=== PATIENT | female | born 1970 | race Caucasian/White ===

== ENCOUNTER 2018-06-25 05:28 | Observation (INO) | payer MEDICARE, MEDICAID ==
[2018-06-25] MEDS ORDERED: ALBUTEROL (0.5% CONCENTRATED) 2.5 MG/0.5 ML VIAL.NEB INH ONE ×2 (05:39→05:50)
[2018-06-25] MEDS ORDERED: IPRATROPIUM/ALBUTEROL (0.5MG/3MG) NEB INH ONE (05:39)
[2018-06-25] MEDS ORDERED: ONDANSETRON HCL IV 4 MG/2 ML VIAL IVP ONE (05:50)
[2018-06-25] MEDS ORDERED: METHYLPREDNISOLONE PF 125MG/VIAL IVPB ONE (05:56)
--- NOTE | 2018-06-25 05:56 | Emergency Department Record ---
History of Present Illness - General Chief Complaint: Shortness of breath Stated Complaint: TROUBLE BREATHING Time Seen by Provider: 06/25/18 05:49 Source: Patient Mode of Arrival: Wheelchair Limitations: No limitations - History of Present Illness Initial Comments: 47 yo female presents to ED for evaluation of worsening difficulty in breathing symptoms that began 3 days ago. Patient reports a history of COPD, denies fevers/chills or chest discomfort, but reports non-productive cough symptoms. Patient reports nausea and vomiting symptoms, denies abdominal pain or recent illness. MD Complaint: Shortness of breath Onset/Timin -: Days(s) Consistency: Constant Improves With: Bronchodilators Worsens With: Nothing Known History Of: COPD Associated Symptoms: Denies other symptoms Treatments Prior to Arrival: Bronchodilator - Related Data Home Oxygen Therapy: No Home Medications Medication Instructions Recorded Confirmed Last Taken Aripiprazole [Abilify] 20 mg PO DAILY 06/25/18 06/25/18 Unknown Fentanyl [Duragesic] 100 mcg TD Q72H 06/25/18 06/25/18 Unknown Furosemide [Lasix] 10 mg PO DAILY 06/25/18 06/25/18 Unknown Hydrocodone/Acetaminophen 1 each PO Q6H 06/25/18 06/25/18 Unknown [Hydrocodone-Acetamin 10-325 mg] Lurasidone HCl [Latuda] 120 mg PO DAILY 06/25/18 06/25/18 Unknown Meclizine HCl [Antivert] 25 mg PO Q8H 06/25/18 06/25/18 Unknown Pantoprazole Sodium [Protonix] 40 mg PO DAILY 06/25/18 06/25/18 Unknown Propranolol HCl [Inderal LA] 60 mg PO DAILY 06/25/18 06/25/18 Unknown Rivaroxaban [Xarelto] 20 mg PO DAILY 06/25/18 06/25/18 Unknown Tizanidine HCl 4 mg PO TID 06/25/18 06/25/18 Unknown Trazodone HCl 200 mg PO QHS 06/25/18 06/25/18 Unknown Zolpidem Tartrate [Ambien] 10 mg PO QHS 06/25/18 06/25/18 Unknown Zonisamide [Zonegran] 300 mg PO DAILY 06/25/18 06/25/18 Unknown Allergies Allergy/AdvReac Type Severity Reaction Status Date / Time Penicillins AdvReac NAUSEA Verified 06/25/18 05:32 Review of Systems Constitutional: Denies: Chills, Fever, Malaise, Night sweats Eyes: Denies: Eye discharge, Eye pain ENT: Denies: Congestion, Ear pain, Epistaxis Respiratory: Reports: Cough, Dyspnea, Wheezes Cardiovascular: Denies: Chest pain, Dyspnea on exertion Endocrine: Denies: Fatigue, Heat or cold intolerance Gastrointestinal: Reports: Nausea, Vomiting. Denies: Abdominal pain Genitourinary: Denies: Incontinence, Retention Musculoskeletal: Denies: Arthralgia, Back pain, Gout, Joint swelling Skin: Denies: Bruising, Change in color Neurological: Denies: Abnormal gait, Confusion, Headache, Seizure Psychiatric: Denies: Anxiety Hematological/Lymphatic: Denies: Anemia, Blood Clots Physical Exam - General General Appearance: Alert, Oriented x3, Cooperative, Moderate distress Limitations: No limitations - Head Head exam: Atraumatic, Normocephalic, Normal inspection Head exam detail: negative: Abrasion, Contusion, Lane's sign, General tenderness, Hematoma, Laceration - Eye Eye exam: Normal appearance. negative: Conjunctival injection, Periorbital swelling, Periorbital tenderness, Scleral icterus - ENT Ear exam: negative: Auricular hematoma, Auricular trauma Nasal Exam: negative: Active bleeding, Discharge, Dried blood, Foreign body Mouth exam: negative: Drooling, Laceration, Muffled voice, Tongue elevation - Neck Neck exam: Normal inspection. negative: Meningismus, Tenderness - Respiratory Respiratory exam: Normal lung sounds bilaterally. negative: Rales, Respiratory distress, Rhonchi, Stridor - Cardiovascular Cardiovascular Exam: Regular rate, Normal rhythm, Normal heart sounds - GI/Abdominal GI/Abdominal exam: Soft. negative: Rebound, Rigid, Tenderness - Rectal Rectal exam: Deferred - exam: Deferred - Extremities Extremities exam: Normal inspection. negative: Calf tenderness, Pedal edema, Tenderness - Back Back exam: Denies: CVA tenderness (R), CVA tenderness (L) - Neurological Neurological exam: Alert, Normal gait, Oriented X3 - Psychiatric Psychiatric exam: Normal affect, Normal mood - Skin Skin exam: Normal color. negative: Abrasion Type of lesion: negative: abrasion Course Vital Signs 06/25/18 05:43 Pulse Rate 97 H Respiratory 26 H Rate Pulse Ox 94 L - Reevaluation(s) Reevaluation #1: 06/25/18 05:55 EKG: NSR 88 Normal axis, normal intervals No acute ST-T wave changes are present Reevaluation #2: 06/25/18 06:47 Laboratory studies were reviewed: Hgb 10.3 CO2 19 AG 17 Labs are otherwise grossly unremarkable for an acute process. CXR: Chronic scarring right base No definite acute chest pathology. Patient is back on Bipap, reports that her symptoms are significantly improved. Will admit for further evaluation. Reevaluation #3: 06/25/18 06:53 Case was discussed with Elva Kitchen CALENDER LET OFF OPERATOR, will accept admission at this time. Medical Decision Making - Lab Data Result diagrams: 06/25/18 05:44 06/25/18 05:44 Critical Care Time Critical Care Time: Yes Total Critical Care Time: 60 Critical Care Time: Diagnosis and treatment of COPD with exacerbation, management of Bipap, EKG interpretation, laboratory interpretation, admission for further evaluation. Disposition Disposition: Admit Clinical Impression: COPD with exacerbation Disposition: Home, Self-Care Decision to Admit: Admit from ER Decision to Admit Date: 06/25/18 Decision to Admit Time: 06:57 Condition: (2) Stable Forms: Patient Portal Access Time of Disposition: 06:57 Quality - Quality Measures Quality Measures: N/A - Blood Pressure Screening Does Patient Have Any of the Following: Active Dx of HTN Blood Pressure Classification: Hypertensive Reading Systolic Measurement: 189 Diastolic Measurement: 119 Screening for High Blood Pressure: Patient Exclusion, Hx of HTN [[id number]]
[2018-06-25] MEDS ORDERED: 0.9 % SODIUM CHLORIDE 1000ML 1,000 ML IV SCH (06:00)
[2018-06-25 06:16] LABS: BASO % 0.2 % (0-6); EOS % 1.3 % (0-6); GRAN % 69.2 % (47-80); HEMATOCRIT 35.8 % (35.0-47.0); HEMOGLOBIN 10.3 gm/dl (11.6-16.0); LYMPH % 16.7 % (16-45); MEAN CELL VOLUME 83.8 fl (81-97); MEAN CORPUSCULAR HEMOGLOBIN 24.1 pg (27-33); MEAN CORPUSCULAR HGB CONC 28.8 g/dl (32-36); MEAN PLATELET VOLUME 10.2 fl (7.4-10.4); MONO % 12.6 % (0-9); PLATELET COUNT 251 K/uL (130-400); RED BLOOD COUNT 4.27 M/uL (3.80-5.40); RED CELL DISTRIBUTION WIDTH 17.7 % (11.5-14.5); WHITE BLOOD COUNT W/O DIFF 8.7 K/uL (4.2-12.2)
[2018-06-25 06:25] LABS: BLOOD UREA NITROGEN 11 mg/dL (6-20); CREATININE 0.9 mg/dL (0.5-0.9); EST GLOMERULAR FILTRATION RATE > 60 mL/min
[2018-06-25 06:26] LABS: TOTAL PROTEIN 8.1 g/dL (6.6-8.7)
[2018-06-25 06:28] LABS: GLUCOSE,RANDOM 108 mg/dL (74-109)
[2018-06-25 06:30] LABS: ALB/GLOB RATIO 1.1 (1.1-1.8); ALBUMIN 4.2 g/dL (4.0-5.0); ALT/SGPT 23 U/L (<33); AST/SGOT 33 U/L (10.0-35.0)
[2018-06-25 06:31] LABS: ALKALINE PHOSPHATASE 97 U/L (45-87)
[2018-06-25] MEDS: IPRATROPIUM/ALBUTEROL (0.5MG/3MG) NEB INH SCH ×5 (07:51→21:55)
[2018-06-25] MEDS ORDERED: 0.9 % SODIUM CHLORIDE 1000ML 1,000 ML IV PRN (07:53)
[2018-06-25] MEDS ORDERED: ACETAMINOPHEN 500 MG TABLET PO PRN (07:53)
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
[2018-06-25 09:16] LABS: INFLUENZA A NEGATIVE (NEGATIVE); INFLUENZA B NEGATIVE (NEGATIVE)
[2018-06-25] MEDS ORDERED: TIZANIDINE HCL 4 MG TABLET PO PRN (09:40)
[2018-06-25] MEDS ORDERED: RIVAROXABAN 20 MG TABLET PO SCH (10:00)
[2018-06-25] MEDS ORDERED: ARIPIPRAZOLE 15 MG PO SCH (10:00)
[2018-06-25] MEDS ORDERED: ARIPIPRAZOLE 20 MG PO SCH (10:00)
[2018-06-25] MEDS ORDERED: ZONISAMIDE 300 MG PO SCH ×2 (10:00→22:30)
[2018-06-25] MEDS ORDERED: TIZANIDINE HCL 4 MG TABLET PO SCH (10:00)
[2018-06-25] MEDS ORDERED: IPRATROPIUM/ALBUTEROL (0.5MG/3MG) NEB INH SCH (10:00)
[2018-06-25] MEDS ORDERED: LURASIDONE HCL 120 MG PO SCH (10:00)
[2018-06-25] MEDS: HYDROCODONE/APAP 10/325 TABLET PO SCH ×3 (10:11→19:53)
[2018-06-25] MEDS: PANTOPRAZOLE SODIUM 40 MG TABLET PO SCH (10:11)
[2018-06-25] MEDS: LORAZEPAM 0.5 MG TABLET PO SCH ×3 (10:12→22:28)
[2018-06-25] MEDS: MECLIZINE 25 MG TABLET PO SCH ×3 (10:12→22:33)
[2018-06-25] MEDS: PROPRANOLOL HCL 60 MG PO SCH (10:13)
[2018-06-25] MEDS: FUROSEMIDE 20 MG TABLET PO SCH (10:13)
[2018-06-25] MEDS: METHYLPREDNISOLONE PF 125MG/VIAL IVP SCH (10:18)
[2018-06-25] MEDS: NICOTINE 21 MG/24 HOUR PATCH TD SCH (10:19)
[2018-06-25] MEDS: BUDESONIDE 0.5 MG/2 ML INH SCH (17:09)
[2018-06-25] MEDS ORDERED: LORAZEPAM 2 MG/ML VIAL IV ONE (19:03)
--- NOTE | 2018-06-25 19:10 | Physician Progress Note ---
Subjective - Date Date of Physician Progress Note: 06/25/18 - Subjective Subjective Comment: During Am rounds, pt c/o sudden onset of right foot pain with numbness and tingling while sitting in bed. Stroke assessment negative, pt is A&Ox4, moving all extremities but having difficulty flexing, extending right foot. Pulses +3 DP, PT, foot pwd. pt has chronic back pain with sciatica involvement. Babinski normal with stimulation. Symptoms resolved in 30 minutes after repositioning in bed under her own power. CT ordered lumbar spin showing DDD but no bulging, canal stenosis or nerve impingement noted. -Dr Harris consulted on situation, no further testing indicated at this time Location: Right, Lower extremity Quality: Aching, Burning Associated symptoms: Denies other symptoms Objective - Vital Signs Vital Signs: Vital Signs - Last 24 Hrs Temp Pulse Pulse Pulse Resp BP BP 06/25/18 18:00 97.9 F 101 H 22 118/74 06/25/18 17:10 100 H 20 06/25/18 13:13 89 20 06/25/18 10:41 89 18 06/25/18 10:30 89 22 127/75 06/25/18 08:32 24 06/25/18 07:51 87 20 06/25/18 07:40 98.1 F 91 H 24 98/80 06/25/18 07:27 84 20 145/89 06/25/18 06:26 81 22 148/88 06/25/18 05:43 97 H 26 H 06/25/18 05:28 97.9 F 103 H 20 189/119 Pulse Ox 06/25/18 18:00 97 06/25/18 17:10 96 06/25/18 13:13 98 06/25/18 10:41 98 06/25/18 10:30 94 L 06/25/18 08:32 06/25/18 07:51 99 06/25/18 07:40 95 06/25/18 07:27 95 06/25/18 06:26 95 06/25/18 05:43 94 L 06/25/18 05:28 95 - General General Appearance: Alert, Oriented x3, Cooperative, No acute distress Limitations: No limitations - Head Head exam: Atraumatic, Normocephalic, Normal inspection Head exam detail: negative: Abrasion, Contusion, Lane's sign, General tenderness, Hematoma, Laceration - Eye Eye exam: Normal appearance. negative: Conjunctival injection, Periorbital swelling, Periorbital tenderness, Scleral icterus - ENT Ear exam: negative: Auricular hematoma, Auricular trauma Nasal Exam: negative: Active bleeding, Discharge, Dried blood, Foreign body Mouth exam: negative: Drooling, Laceration, Muffled voice, Tongue elevation - Neck Neck exam: Normal inspection. negative: Meningismus, Tenderness - Respiratory Respiratory exam: Normal lung sounds bilaterally. negative: Rales, Respiratory distress, Rhonchi, Stridor - Cardiovascular Cardiovascular Exam: Regular rate, Normal rhythm, Normal heart sounds Peripheral Pulses: 2+: Radial (R), Radial (L), Dorsalis Pedis (R), Dorsalis Pedis (L) - GI/Abdominal GI/Abdominal exam: Soft, Other (J tube left lower abd). negative: Rebound, Rigid, Tenderness - Rectal Rectal exam: Deferred - exam: Deferred - Extremities Extremities exam: Normal inspection. negative: Calf tenderness, Pedal edema, Tenderness - Back Back exam: Denies: CVA tenderness (R), CVA tenderness (L) - Neurological Neurological exam: Alert, Normal gait, Oriented X3 - Psychiatric Psychiatric exam: Normal affect, Normal mood - Skin Skin exam: Normal color. negative: Abrasion Type of lesion: negative: abrasion Assessment and Plan - Assessment and Plan (1) COPD with exacerbation Current Visit: Yes Status: Acute Base Code: J44.1 - CHRONIC OBSTRUCTIVE PULMONARY DISEASE W (ACUTE) EXACERBATION Comment: 06/25/18 -after short trial on Bipap, pt maintaining sats on NC -steroids and neb tx controlling symptoms -pt encouraged to stop smoking, currently 1ppd -re-eval pt in the AM for D/C on short course PO steroids (2) Full code status Current Visit: Yes Status: Acute Base Code: Z78.9 - OTHER SPECIFIED HEALTH STATUS Comment: 06/25/18 -full code (3) DVT prophylaxis Current Visit: Yes Status: Acute Base Code: [id number] - Comment: 06/25/18 -pt on Xeralto daily for h/o PEs Results - Labs Result Diagrams: 06/25/18 05:44 06/25/18 05:44 Labs Last 24 Hours: Laboratory Results - last 24 hr 06/25/18 06/25/18 06/25/18 05:44 05:44 08:20 WBC 8.7 RBC 4.27 Hgb 10.3 L Hct 35.8 MCV 83.8 MCH 24.1 L MCHC 28.8 L RDW 17.7 H Plt Count 251 MPV 10.2 Gran % 69.2 Lymphocytes % 16.7 Monocytes % 12.6 H Eosinophils % 1.3 Basophils % 0.2 Sodium 141 Potassium 4.2 Chloride 105 Carbon Dioxide 19.0 L Anion Gap 17.0 H BUN 11 Creatinine 0.9 Estimated GFR > 60 Random Glucose 108 Calcium 8.9 Total Bilirubin 0.20 AST 33 ALT 23 Alkaline Phosphatase 97 H Troponin T < 0.010 Total Protein 8.1 Albumin 4.2 Globulin 3.9 Albumin/Globulin Ratio 1.1 Influenza Type A Ag Negative Influenza Type B Ag Negative DVT/PE Assessment - Risk for VTE Risk for VTE: No Risk Level: Moderate Risk Assessment Date: 06/25/18 Risk Assessment Time: 10:00 VTE Orders Placed or Will Be Placed: No VTE Reason for No Prophylaxis: Contraindicated (pt on xeralto) - Active Medicaitons Current Medications: Current Medications Acetaminophen (Tylenol 500mg Tab) 1,000 mg PO Q6H PRN PRN Reason: PAIN - MILD(1-4)/FEVER Hydrocodone Bitart/Acetaminophen ([place] 10mg/325mg) 1 each PO Q6H [facility] Last Admin: 06/25/18 14:55 Dose: 1 each Albuterol Sulfate (Albuterol Sulfate) 2.5 mg INH RESP.Q2H PRN PRN Reason: DIFFICULTY IN BREATHING Albuterol/Ipratropium (Duoneb) 3 ml INH RESP.Q4H.WA [facility] Last Admin: 06/25/18 17:09 Dose: 3 ml Budesonide (Pulmicort) 0.5 mg INH RESP.BID [facility] Last Admin: 06/25/18 17:09 Dose: 0.5 mg Fentanyl (Duragesic) 100 mcg TD Q72H [facility] Furosemide (Lasix) 10 mg PO DAILY [facility] Last Admin: 06/25/18 10:13 Dose: 10 mg Sodium Chloride () 1,000 mls @ 100 mls/hr IV .Q10H PRN PRN Reason: LARGE VOLUME IV Lorazepam (Ativan) 1 mg PO TID [facility] Last Admin: 06/25/18 15:04 Dose: 1 mg Lorazepam (Ativan) 1 mg IV NOW ONE Stop: 06/25/18 19:04 Meclizine HCl (Antivert) 25 mg PO Q8H [facility] Last Admin: 06/25/18 14:54 Dose: 25 mg Methylprednisolone Sodium Succinate (Solu-Medrol) 125 mg IVP DAILY [facility] Last Admin: 06/25/18 10:18 Dose: 125 mg Nicotine (Nicotine 21mg) 1 patch TD Q24H [facility] Last Admin: 06/25/18 10:19 Dose: 1 patch Non-Formulary Medication (Propranolol Hcl [Inderal La]) 60 mg PO DAILY [facility] Last Admin: 06/25/18 10:13 Dose: 60 mg Non-Formulary Medication (Aripiprazole [Abilify]) 15 mg PO DAILY [facility] Last Admin: 06/25/18 10:19 Dose: Not Given Non-Formulary Medication (Lurasidone Hcl [Latuda]) 120 mg PO DAILY [facility] Non-Formulary Medication (Zonisamide [Zonegran]) 300 mg PO DAILY [facility] Pantoprazole Sodium (Protonix) 40 mg PO DAILY [facility] Last Admin: 06/25/18 10:11 Dose: 40 mg Rivaroxaban (Xarelto) 20 mg PO DAILY [facility] Tizanidine HCl (Tizanidine Hcl) 4 mg PO BID PRN PRN Reason: MUSCLE SPASMS Trazodone HCl (Desyrel) 200 mg PO QHS [facility] Zolpidem Tartrate (Ambien) 10 mg PO QHS [facility] AMI Plan - Labs Result Diagrams: 06/25/18 05:44 06/25/18 05:44
[2018-06-25] MEDS: ALBUTEROL SULFATE (0.083%) 2.5 MG/3 ML NEB INH PRN ×2 (19:48→21:52)
[2018-06-25] MEDS ORDERED: TRAZODONE 50 MG TABLET PO SCH (22:00)
[2018-06-25] MEDS ORDERED: ZOLPIDEM TARTRATE 5 MG TABLET PO SCH (22:00)
[2018-06-25] MEDS ORDERED: LURASIDONE 120 MG PO SCH (22:30)
[2018-06-25] MEDS: RIVAROXABAN 20 MG TABLET PO SCH (22:32)
[2018-06-26] MEDS: MECLIZINE 25 MG TABLET PO SCH ×2 (01:10→07:21)
[2018-06-26] MEDS: HYDROCODONE/APAP 10/325 TABLET PO SCH ×2 (03:24→07:21)
[2018-06-26] MEDS: ALBUTEROL SULFATE (0.083%) 2.5 MG/3 ML NEB INH PRN (03:39)
[2018-06-26] MEDS: BUDESONIDE 0.5 MG/2 ML INH SCH (06:05)
[2018-06-26] MEDS: IPRATROPIUM/ALBUTEROL (0.5MG/3MG) NEB INH SCH ×2 (06:05→09:43)
[2018-06-26] MEDS ORDERED: KETOROLAC 30 MG/ML VIAL IVP ONE (08:18)
[2018-06-26] MEDS ORDERED: DIPHENHYDRAMINE HCL 50 MG/ML VIAL IVP ONE (08:19)
[2018-06-26] MEDS ORDERED: LORAZEPAM 2 MG/ML VIAL IV ONE ×2 (08:34→11:32)
[2018-06-26] MEDS: METHYLPREDNISOLONE PF 125MG/VIAL IVP SCH ×2 (08:50→10:21)
--- NOTE | 2018-06-26 09:11 | Physician Progress Note ---
Subjective - Date Date of Physician Progress Note: 06/26/18 - Subjective Subjective Comment: During Am rounds, pt c/o sudden onset of right foot pain with numbness and tingling while sitting in bed. Stroke assessment negative, pt is A&Ox4, moving all extremities but having difficulty flexing, extending right foot. Pulses +3 DP, PT, foot pwd. pt has chronic back pain with sciatica involvement. Babinski normal with stimulation. Symptoms resolved in 30 minutes after repositioning in bed under her own power. CT ordered lumbar spin showing DDD but no bulging, canal stenosis or nerve impingement noted. -Dr Harris consulted on situation, no further testing indicated at this time -pt to maintain seizure precautions 06/24/18 Pt 1905 pt had witnesses tonic clonic seizure for approx 5-6 minutes. Rapid response was called, pt given Ativan 1mg IVP, post ictal for 5-10 minutes. Per nursing pt maintained airway and post-ictal time was approx 30 mins. 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 Pt was given Ativan 1mg IVP. pt maintained her airway, sats were 92% 2Lnc at the beginning, increased to venti mask 95%sat and now back to 3L nc with 97% sat. Pt 0840 pt is alert and oriented, sitting up in chair. POC to transfer pt to [facility] for neurology consult. Objective - Vital Signs Vital Signs: Vital Signs - Last 24 Hrs Temp Pulse Pulse Pulse Resp BP Pulse Ox 06/26/18 06:07 118 H 22 93 L 06/26/18 03:42 110 H 18 95 06/26/18 00:00 114 H 22 174/96 92 L 06/25/18 21:53 102 H 20 97 06/25/18 20:08 98.0 F 102 H 20 147/79 92 L 06/25/18 19:50 104 H 18 97 06/25/18 18:00 97.9 F 101 H 22 118/74 97 06/25/18 17:10 100 H 20 96 06/25/18 13:13 89 20 98 06/25/18 10:41 89 18 98 06/25/18 10:30 89 22 127/75 94 L - General General Appearance: Alert, Oriented x3, Cooperative, Mild distress Limitations: No limitations - Head Head exam: Atraumatic, Normocephalic, Normal inspection Head exam detail: negative: Abrasion, Contusion, Lane's sign, General tenderness, Hematoma, Laceration - Eye Eye exam: Normal appearance. negative: Conjunctival injection, Periorbital swelling, Periorbital tenderness, Scleral icterus - ENT Ear exam: negative: Auricular hematoma, Auricular trauma Nasal Exam: negative: Active bleeding, Discharge, Dried blood, Foreign body Mouth exam: negative: Drooling, Laceration, Muffled voice, Tongue elevation - Neck Neck exam: Normal inspection. negative: Meningismus, Tenderness - Respiratory Respiratory exam: Normal lung sounds bilaterally. negative: Rales, Respiratory distress, Rhonchi, Stridor - Cardiovascular Cardiovascular Exam: Regular rate, Normal rhythm, Normal heart sounds Peripheral Pulses: 2+: Radial (R), Radial (L), Dorsalis Pedis (R), Dorsalis Pedis (L) - GI/Abdominal GI/Abdominal exam: Soft, Other (J tube left lower abd). negative: Rebound, Rigid, Tenderness - Rectal Rectal exam: Deferred - exam: Deferred - Extremities Extremities exam: Normal inspection. negative: Calf tenderness, Pedal edema, Tenderness - Back Back exam: Denies: CVA tenderness (R), CVA tenderness (L) - Neurological Neurological exam: Alert, Normal gait, Oriented X3 - Psychiatric Psychiatric exam: Normal affect, Normal mood - Skin Skin exam: Normal color. negative: Abrasion Type of lesion: negative: abrasion Assessment and Plan - Assessment and Plan (1) COPD with exacerbation Current Visit: Yes Status: Acute Base Code: J44.1 - CHRONIC OBSTRUCTIVE PULMONARY DISEASE W (ACUTE) EXACERBATION Comment: 06/25/18 -after short trial on Bipap, pt maintaining sats on NC -steroids and neb tx controlling symptoms -pt encouraged to stop smoking, currently 1ppd -re-eval pt in the AM for D/C on short course PO steroids 06/26/18 -pt able to maintain O2 sats with NC -continue steroids (2) Seizure Current Visit: Yes Status: Acute Base Code: R56.9 - UNSPECIFIED CONVULSIONS Comment: 06/26/18 -pt has had 2 tonic-clonic seizures in 12 hours, with h/o seizures -pt reports that she has more freq seizures when she is sick -Pt to transfer to [facility] r/t repeated seizure activity, Dr Gilbert accepting -Pt neruologist Dr Castillo (3) Full code status Current Visit: Yes Status: Acute Base Code: Z78.9 - OTHER SPECIFIED HEALTH STATUS Comment: 06/25/18 -full code (4) DVT prophylaxis Current Visit: Yes Status: Acute Base Code: [id number] - Comment: 06/25/18 -pt on Xeralto daily for h/o PEs Results - Labs Result Diagrams: 06/25/18 05:44 06/25/18 05:44 Labs Last 24 Hours: Laboratory Results - last 24 hr 06/25/18 08:20 Influenza Type A Ag Negative Influenza Type B Ag Negative DVT/PE Assessment - Risk for VTE Risk for VTE: No Risk Level: Moderate Risk Assessment Date: 06/25/18 Risk Assessment Time: 10:00 VTE Orders Placed or Will Be Placed: No VTE Reason for No Prophylaxis: Contraindicated (pt on xeralto) - Active Medicaitons Current Medications: Current Medications Acetaminophen (Tylenol 500mg Tab) 1,000 mg PO Q6H PRN PRN Reason: PAIN - MILD(1-4)/FEVER Hydrocodone Bitart/Acetaminophen ([place] 10mg/325mg) 1 each PO Q6H [facility] Last Admin: 06/26/18 07:21 Dose: 1 each Albuterol Sulfate (Albuterol Sulfate) 2.5 mg INH RESP.Q2H PRN PRN Reason: DIFFICULTY IN BREATHING Last Admin: 06/26/18 03:39 Dose: 2.5 mg Albuterol/Ipratropium (Duoneb) 3 ml INH RESP.Q4H.WA [facility] Last Admin: 06/26/18 06:05 Dose: 3 ml Budesonide (Pulmicort) 0.5 mg INH RESP.BID [facility] Last Admin: 06/26/18 06:05 Dose: 0.5 mg Diphenhydramine HCl (Benadryl) 25 mg IVP NOW ONE Stop: 06/26/18 08:20 Fentanyl (Duragesic) 100 mcg TD Q72H [facility] Furosemide (Lasix) 10 mg PO DAILY [facility] Last Admin: 06/25/18 10:13 Dose: 10 mg Sodium Chloride () 1,000 mls @ 100 mls/hr IV .Q10H PRN PRN Reason: LARGE VOLUME IV Ketorolac Tromethamine (Toradol) 15 mg IVP NOW ONE Stop: 06/26/18 08:19 Lorazepam (Ativan) 1 mg PO TID [facility] Last Admin: 06/25/18 22:28 Dose: 1 mg Lorazepam (Ativan) 1 mg IV NOW ONE Stop: 06/26/18 08:35 Meclizine HCl (Antivert) 25 mg PO Q8H [facility] Last Admin: 06/26/18 07:21 Dose: 25 mg Methylprednisolone Sodium Succinate (Solu-Medrol) 125 mg IVP DAILY [facility] Last Admin: 06/25/18 10:18 Dose: 125 mg Nicotine (Nicotine 21mg) 1 patch TD Q24H [facility] Last Admin: 06/25/18 10:19 Dose: 1 patch Non-Formulary Medication (Propranolol Hcl [Inderal La]) 60 mg PO DAILY [facility] Last Admin: 06/25/18 10:13 Dose: 60 mg Non-Formulary Medication (Aripiprazole [Abilify]) 15 mg PO DAILY [facility] Last Admin: 06/25/18 10:19 Dose: Not Given Pantoprazole Sodium (Protonix) 40 mg PO DAILY [facility] Last Admin: 06/25/18 10:11 Dose: 40 mg Patient Own Med: (Lurasidone 120mg) 1 each PO QHS [facility] Last Admin: 06/25/18 22:34 Dose: 1 each Patient Own Med: (Zonisamide 300 Mg) 1 each PO QHS [facility] Last Admin: 06/25/18 22:34 Dose: 1 each Rivaroxaban (Xarelto) 20 mg PO DAILY [facility] Last Admin: 06/25/18 22:32 Dose: 20 mg Tizanidine HCl (Tizanidine Hcl) 4 mg PO BID PRN PRN Reason: MUSCLE SPASMS Trazodone HCl (Desyrel) 200 mg PO QHS [facility] Last Admin: 06/25/18 22:29 Dose: 200 mg Zolpidem Tartrate (Ambien) 10 mg PO QHS [facility] Last Admin: 06/25/18 22:29 Dose: 10 mg AMI Plan - Labs Result Diagrams: 06/25/18 05:44 06/25/18 05:44
--- NOTE | 2018-06-26 09:24 | Discharge Note ---
VTE H&P Assessment - Risk for VTE Risk for VTE: No Risk Level: Moderate Risk Assessment Date: 06/25/18 Risk Assessment Time: 10:00 VTE Orders Placed or Will Be Placed: No VTE Reason for No Prophylaxis: Contraindicated (pt on xeralto) Discharge Medications - Discharge Medications Home Medications: Ambulatory Orders Aripiprazole [Abilify] 20 mg PO DAILY 06/25/18 [Last Taken Unknown] Fentanyl [Duragesic] 100 mcg TD Q72H 06/25/18 [Last Taken Unknown] Furosemide [Lasix] 10 mg PO DAILY 06/25/18 [Last Taken Unknown] Hydrocodone/Acetaminophen [Hydrocodone-Acetamin 10-325 mg] 1 each PO Q6H [Last Taken Unknown] Lurasidone HCl [Latuda] 120 mg PO DAILY 06/25/18 [Last Taken Unknown] Meclizine HCl [Antivert] 25 mg PO Q8H 06/25/18 [Last Taken Unknown] Pantoprazole Sodium [Protonix] 40 mg PO DAILY 06/25/18 [Last Taken Unknown] Propranolol HCl [Inderal LA] 60 mg PO DAILY 06/25/18 [Last Taken Unknown] Rivaroxaban [Xarelto] 20 mg PO DAILY 06/25/18 [Last Taken Unknown] Tizanidine HCl 4 mg PO TID 06/25/18 [Last Taken Unknown] Trazodone HCl 200 mg PO QHS 06/25/18 [Last Taken Unknown] Zolpidem Tartrate [Ambien] 10 mg PO QHS 06/25/18 [Last Taken Unknown] Zonisamide [Zonegran] 300 mg PO DAILY 06/25/18 [Last Taken Unknown] Albuterol Sulfate 0.083% [Neb] [Albuterol Sulfate] 2.5 mg INH RESP.Q2H PRN nebulization solution 06/26/18 [Last Taken Unknown] Ipratropium/Albuterol [Duoneb] 3 ml INH RESP.Q4H.WA ampul.neb 06/26/18 [Last Taken Unknown] Lorazepam [Ativan] 1 mg PO TID tablet 06/26/18 [Last Taken Unknown] Discharge Note - Date Date of Discharge Note: 06/26/18 (Pt has been on seizure precautions the duration of her stay) Disposition: Acute Care Hospital Transfer Condition: (2) Stable Forms: Patient Portal Access Diet at Discharge: Advance to Usual Diet
[2018-06-26] MEDS: FUROSEMIDE 20 MG TABLET PO SCH (10:20)
[2018-06-26] MEDS: NICOTINE 21 MG/24 HOUR PATCH TD SCH (10:22)
[2018-06-26] MEDS: PANTOPRAZOLE SODIUM 40 MG TABLET PO SCH (10:22)
[2018-06-26] MEDS: PROPRANOLOL HCL 60 MG PO SCH (10:24)
[2018-06-26] MEDS: LORAZEPAM 0.5 MG TABLET PO SCH (10:24)
[2018-06-26] MEDS: RIVAROXABAN 20 MG TABLET PO SCH (10:26)
[2018-06-26] MEDS ORDERED: PROPRANOLOL HCL 10 MG TABLET PO SCH (10:30)
[2018-06-26] MEDS ORDERED: FENTANYL 50MCG PATCH TD SCH (22:00)
--- NOTE | 2018-06-27 07:21 | RADIOLOGY REPORT ---
EXAM: PORTABLE CHEST HISTORY: DIFFICULTY BREATHING. COUGH AND COLD FOR THE PAST THREE DAYS. TECHNIQUE: A single portable AP upright view of the chest was performed. Comparison: 05/11/11. FINDINGS: There are low lung volumes. The heart, mediastinum, and pulmonary vasculature are normal. There is stable scarring at the right lung base. There are no visible acute infiltrates or effusions. There is no pneumothorax. The bones appear intact. IMPRESSION: 1. STABLE SCARRING AT THE RIGHT LUNG BASE. 2. NO ACUTE INTRATHORACIC PATHOLOGY. JOB NUMBER: [id number] [facility]
--- NOTE | 2018-06-27 07:28 | CT SCAN REPORT ---
EXAM: CT SCAN OF THE LUMBAR SPINE WITHOUT CONTRAST HISTORY: RIGHT FOOT NUMBNESS TODAY. TECHNIQUE: Standard CT imaging of the lumbar spine was performed in the axial plane without contrast. Additional coronal and sagittal reformatted images were also performed. Comparison: None. FINDINGS: There are five lumbar vertebral segments. The lumbar intervertebral disk spaces and vertebral body heights are maintained. Minor end plate degenerative changes are present. There are no acute osseous abnormalities. There is no spondylolisthesis. The visualized paraspinal soft tissues appear normal. At the T12-L1, L1-L2, and L2-L3 levels: No significant abnormalities are identified. At the L3-L4 level: There is minor disk bulging with no visible disk herniation , central canal stenosis, or nerve root impingement. There is minor bilateral neural foraminal narrowing. At the L4-L5 level: There is mild diffuse disk bulging and mild bilateral facet arthropathy. There is no visible disk herniation, central canal stenosis , or nerve root impingement. There is mild to moderate neural foraminal narrowing bilaterally. At the L5-S1 level: There is mild diffuse disk bulging. Mild bilateral facet arthropathy is present. There is no visible disk herniation, central canal stenosis, or nerve root impingement. There is no significant neural foraminal narrowing. IMPRESSION: MILD MULTILEVEL DEGENERATIVE DISK DISEASE AND FACET ARTHROPATHY DETAILED ABOVE. THERE IS NO VISIBLE DISK HERNIATION, CENTRAL CANAL STENOSIS, OR NERVE ROOT IMPINGEMENT. IF SYMPTOMS PERSIST, A NONEMERGENT MRI OF THE LUMBAR SPINE WOULD BE RECOMMENDED FOR FURTHER EVALUATION. JOB NUMBER: [id number] [facility]
--- NOTE | 2018-08-25 10:08 | Discharge Summary ---
Providers Discharge Summary Date: 06/26/18 Date of admission: 06/25/18 07:31 Expected Date of Discharge: 06/26/18 Attending physician: YULIA BUTTS Physical Exam - General General Appearance: Alert, Oriented x3, Cooperative, Mild distress Limitations: No limitations - Head Head exam: Atraumatic, Normocephalic, Normal inspection Head exam detail: negative: Abrasion, Contusion, Lane's sign, General tenderness, Hematoma, Laceration - Eye Eye exam: Normal appearance. negative: Conjunctival injection, Periorbital swelling, Periorbital tenderness, Scleral icterus - ENT Ear exam: negative: Auricular hematoma, Auricular trauma Nasal Exam: negative: Active bleeding, Discharge, Dried blood, Foreign body Mouth exam: negative: Drooling, Laceration, Muffled voice, Tongue elevation - Neck Neck exam: Normal inspection. negative: Meningismus, Tenderness - Respiratory Respiratory exam: Normal lung sounds bilaterally. negative: Rales, Respiratory distress, Rhonchi, Stridor - Cardiovascular Cardiovascular Exam: Regular rate, Normal rhythm, Normal heart sounds Peripheral Pulses: 2+: Radial (R), Radial (L), Dorsalis Pedis (R), Dorsalis Pedis (L) - GI/Abdominal GI/Abdominal exam: Soft, Other (J tube left lower abd). negative: Rebound, Rigid, Tenderness - Rectal Rectal exam: Deferred - exam: Deferred - Extremities Extremities exam: Normal inspection. negative: Calf tenderness, Pedal edema, Tenderness - Back Back exam: Denies: CVA tenderness (R), CVA tenderness (L) - Neurological Neurological exam: Alert, Normal gait, Oriented X3 - Psychiatric Psychiatric exam: Normal affect, Normal mood - Skin Skin exam: Normal color. negative: Abrasion Type of lesion: negative: abrasion Hospitalization - Hospitalization Admission Diagnosis: COPD with acute exacerbation - Problem List/Discharge Diagnosis (1) COPD with exacerbation Status: Acute Base Code: J44.1 - CHRONIC OBSTRUCTIVE PULMONARY DISEASE W ( ACUTE) EXACERBATION Comment: 06/25/18 -after short trial on Bipap, pt maintaining sats on NC -steroids and neb tx controlling symptoms -pt encouraged to stop smoking, currently 1ppd -re-eval pt in the AM for D/C on short course PO steroids 06/26/18 -pt able to maintain O2 sats with NC -continue steroids (2) Seizure Status: Acute Base Code: R56.9 - UNSPECIFIED CONVULSIONS Comment: 06/26/18 -pt has had 2 tonic-clonic seizures in 12 hours, with h/o seizures -pt reports that she has more freq seizures when she is sick -Pt to transfer to [facility] r/t repeated seizure activity, Dr Gilbert accepting -Pt neruologist Dr Castillo (3) Full code status Status: Acute Base Code: Z78.9 - OTHER SPECIFIED HEALTH STATUS Comment: 06/25 -full code (4) DVT prophylaxis Status: Acute Base Code: [id number] - Comment: 06/25/18 -pt on Xeralto daily for h/o PEs - Hospitalization Course Disposition: Acute Care Hospital Transfer Procedures: Imaging and X-Rays 06/25/18 06:07 CHEST 1 VIEW [RAD] Stat 06/25/18 10:29 LUMBAR SPINE WO CONTRAST [CT] Stat Cardiology Procedures 06/25/18 05:50 EKG NOW 06/25/18 07:53 Fish Agent .Continuous Abnormal Labs: Abnormal Lab Results 06/25/18 06/25/18 Range/Units 05:44 05:44 Hgb 10.3 L (11.6-16.0) gm/dl MCH 24.1 L (27-33) pg MCHC 28.8 L (32-36) g/dl RDW 17.7 H (11.5-14.5) % Monocytes % 12.6 H (0-9) % Carbon Dioxide 19.0 L (22-29) mmol/L Anion Gap 17.0 H (7-16) Alkaline Phosphatase 97 H (45-87) U/L Condition at Discharge: (2) Stable Discharge Medications - Discharge Medications Home Medications: Ambulatory Orders Aripiprazole [Abilify] 20 mg PO DAILY 06/25/18 [Last Taken Unknown] Fentanyl [Duragesic] 100 mcg TD Q72H 06/25/18 [Last Taken Unknown] Furosemide [Lasix] 10 mg PO DAILY 06/25/18 [Last Taken Unknown] Hydrocodone/Acetaminophen [Hydrocodone-Acetamin 10-325 mg] 1 each PO Q6H [Last Taken Unknown] Lurasidone HCl [Latuda] 120 mg PO DAILY 06/25/18 [Last Taken Unknown] Meclizine HCl [Antivert] 25 mg PO Q8H 06/25/18 [Last Taken Unknown] Pantoprazole Sodium [Protonix] 40 mg PO DAILY 06/25/18 [Last Taken Unknown] Propranolol HCl [Inderal LA] 60 mg PO DAILY 06/25/18 [Last Taken Unknown] Rivaroxaban [Xarelto] 20 mg PO DAILY 06/25/18 [Last Taken Unknown] Tizanidine HCl 4 mg PO TID 06/25/18 [Last Taken Unknown] Trazodone HCl 200 mg PO QHS 06/25/18 [Last Taken Unknown] Zolpidem Tartrate [Ambien] 10 mg PO QHS 06/25/18 [Last Taken Unknown] Zonisamide [Zonegran] 300 mg PO DAILY 06/25/18 [Last Taken Unknown] Albuterol Sulfate 0.083% [Neb] [Albuterol Sulfate] 2.5 mg INH RESP.Q2H PRN nebulization solution 06/26/18 [Last Taken Unknown] Ipratropium/Albuterol [Duoneb] 3 ml INH RESP.Q4H.WA ampul.neb 06/26/18 [Last Taken Unknown] Lorazepam [Ativan] 1 mg PO TID tablet 06/26/18 [Last Taken Unknown] Discharge Plan - Discharge Instructions Quality Measures - Quality Measures Quality Measures: Documentation of Current Medications in Medical Record, Screening for High Blood Pressure and F/U Documented - Current Medications Quality Measure: Measure #130: Documentation of Current Medications Documentation of Current Medications: <Current Medications Documented/Reviewed> [G8427] - Blood Pressure Screening Quality Measure: Screening for High Blood Pressure and Follow-Up Documented Does Patient Have Any of the Following: Active Dx of HTN Blood Pressure Classification: Hypertensive Reading Systolic Measurement: 189 Diastolic Measurement: 119 Screening for High Blood Pressure: Patient Exclusion, Hx of HTN [G9744] - Elder Abuse Suspicion Index EASI Reference Information: Mil ARTIS, Dotty C, Lolita D, She Nelson.Development and validation of a tool to assist physicians identification of elder abuse: The Elder Abuse Suspicion Index (EASI ). Journal of Elder Abuse and Neglect, 2008; 20 (3): 276-300.
== END 2018-06-26 11:20 | disposition short-term general hospital (02) ==
LOC: ER 05:28 → MEDSURG 07:31
PROVIDERS: ADMIT Internal Medicine; ATTEND Internal Medicine
DX: J44.1 Chronic obstructive pulmonary disease with (acute) exacerbation (principal); R56.9 Unspecified convulsions; R05 Cough; R11.2 Nausea with vomiting, unspecified; I10 Essential (primary) hypertension; G45.9 Transient cerebral ischemic attack, unspecified; G40.409 Other generalized epilepsy and epileptic syndromes, not intractable, without status epilepticus; K21.9 Gastro-esophageal reflux disease without esophagitis; K31.84 Gastroparesis; F17.210 Nicotine dependence, cigarettes, uncomplicated; Z86.711 Personal history of pulmonary embolism; Z79.01 Long term (current) use of anticoagulants; Z85.828 Personal history of other malignant neoplasm of skin
CPT/HCPCS: 71045; 72131; 80053; 84484; 85025; 87400; 93005; 93010; 94640; 94660; 94760; 94761; 99217; 99220; J1885; J2405; J2930; J7613